=== PATIENT | female | born 1950 | race Caucasian/White ===

== ENCOUNTER → 2019-07-26 | Outpatient (CLI) | payer MEDICARE ==
[~2019-07-26] MED LIST: ALLEGRA-D TABLE1 TAB PO; COZAAR100 MG PO; CRESTOR20 MG PO; LIPITOR 10MG10 MG PO; NATURAL E400 IU PO; OMEGA-3 FISH1000 MG PO; OSCAL 500 TAB500 MG PO; VIT E; ZOCOR 40MG40 MG PO; ZOLOFT50 MG PO; [UNRECOGNIZED DRUG - CODE] IV
== END ==
LOC: MC.RAD 10:30
DX: Z12.31 Encounter for screening mammogram for malignant neoplasm of breast (principal)

== ENCOUNTER → 2020-08-16 | Outpatient (CLI) | payer MEDICARE | LOC: MC.RAD 09:32 | DX: Z12.31 Encounter for screening mammogram for malignant neoplasm of breast (principal) ==

== ENCOUNTER → 2023-12-30 | Outpatient (CLI) | payer MEDICARE | LOC: MC.RAD 11:05 | DX: Z12.31 Encounter for screening mammogram for malignant neoplasm of breast (principal) ==